=== PATIENT | male | born 1960 | race Two or more races ===

== ENCOUNTER 2022-08-31 12:37 | Day surgery (SDC) | payer OTHER ==
[~2022-08-31] VITALS: Ht 193 cm; Wt 117.9 kg
[~2022-08-31 12:37] MED LIST: AMLODIP PO; TOPROL XL25 M1 PO; ZESTRIL20 MG PO
[2022-08-31] MEDS ORDERED: TRAMADOL HCL50 MG PO (18:40)
[2022-08-31] MEDS ORDERED: KETO10TA2 PO (18:40)
[2022-08-31] MEDS ORDERED: TYLENOL ARTHRI650 MG PO (18:40)
[2022-08-31] MEDS ORDERED: MIRALAX17 GM PO (18:40)
== END 2022-09-01 03:20 | disposition home or self-care (01) ==
LOC: CIR.AMB 12:37
PROVIDERS: ATTEND Surgery
DX: K40.20 Bilateral inguinal hernia, without obstruction or gangrene, not specified as recurrent (principal); K42.9 Umbilical hernia without obstruction or gangrene; I10 Essential (primary) hypertension; F17.210 Nicotine dependence, cigarettes, uncomplicated; Z20.822 Contact with and (suspected) exposure to COVID-19
CPT/HCPCS: 49650; 49591; C1781